=== PATIENT | female | born 2000 | race Caucasian/White ===

== ENCOUNTER 2021-11-10 12:57 | Emergency (ER) | payer OTHER, SELFPAY ==
--- NOTE | 2021-11-10 13:02 | ED.URI ---
HPI - URI/Sore Throat General Chief Complaint: Upper Respiratory Infection Stated Complaint: Sore throat Time Seen by Provider: 11/10/21 13:19 Source: patient and RN notes reviewed Mode of arrival: ambulatory Limitations: no limitations History of Present Illness HPI Narrative: 21-year-old female presents concern for sore throat. Reports symptoms started with the right clogged ear. Reports evolved into a sore throat. Reports trying to use several remedies at home to clean her ear out without success. She denies cough, body aches, chills, sweats. Reports general malaise. MD elicited complaint: cough and sore throat Related Data Allergies Allergy/AdvReac Type Severity Reaction Status Date / Time No Known Allergies Allergy Verified 11/10/21 13:17 Review of Systems Review of Systems: CONSTITUTIONAL: Reports malaise. Denies chills, sweats, or fever. EYES: Denies visual changes, redness, or discharge. ENT: Denies rhinorrhea, congestion, sinus pain, otalgia. Reports clogged right ear and sore throat. CARDIOVASCULAR: Denies chest pain, palpitations, or edema. RESPIRATORY: Denies cough. Denies dyspnea. GASTROINTESTINAL: Denies abdominal pain, nausea, vomiting, diarrhea SKIN: Denies rash or itching. MUSCULOSKELETAL: Denies myalgia. NEUROLOGIC: Denies headache. All systems reviewed & are unremarkable except as noted in HPI and below PMFSH Comments At time of signature, agree with nursing past medical, surgical, social and family history. There is no relevant family history pertinent to the presenting complaint Exam Narrative: GENERAL: Well-appearing, well-nourished, and in no acute distress. HEAD: Normocephalic EYES: PERRLA, conjunctivae clear ENT: Nares angieszka. Mucous membranes moist. Left TM pearly preciado with sharp light reflex, right TM not visible due to cerumen impaction; no tragal tenderness. Oropharynx erythematous without lesions. Tonsils enlarged with copious exudate, no drooling, no hoarseness, no trismus, uvula midline. NECK: Supple. No lymphadenopathy CHEST: Clear to auscultation, breath sounds equal. No wheezing, rhonchi, rales, or stridor. No respiratory distress, speaks in full sentences. HEART: Regular rate and rhythm. No murmur heard. SKIN: Warm, dry, no rash. NEURO: Alert and oriented x3. PSYCH: Normal mood and affect Course Course Emergency Course: Patient is aware of diagnosis, understands and agrees to treatment plan. Anticipatory guidance given. Patient agrees to follow-up as directed and is aware of reasons to seek care at the emergency department. Portions of this record may have been created with voice recognition software Vital Signs Vital signs: Vital Signs Temperature 99.9 F H 11/10/21 13:04 Pulse Rate 90 11/10/21 13:04 Respiratory Rate 16 11/10/21 13:04 Blood Pressure 109/95 H 11/10/21 13:04 Pulse Oximetry 100 11/10/21 13:04 Temperature 99.9 F H 11/10/21 13:04 Pulse Rate 90 11/10/21 13:04 Respiratory Rate 16 11/10/21 13:04 Blood Pressure 109/95 H 11/10/21 13:04 Pulse Oximetry 100 11/10/21 13:04 Reviewed. Procedures Ear Wax Removal Right Ear: Ear Wax Removal Date: 11/10/21 Ear Wax Removal Time: 14:27 Cerumenolytic Used: 5-10% Sodium Bicarb solution Results: Re-examined: cerumen removed completely TM Examination: TM(s) intact, normal appearance Ear Canal Exam: atraumatic Patient Tolerated Procedure: well Complications: no problems Technique: ear canal irrigated and ear canal curetted MDM - URI/Sore Throat MDM Narrative Medical decision making narrative: Differential diagnosis considered: Britton virus, strep pharyngitis, allergic rhinitis, upper respiratory tract infection, sinusitis, rhinosinusitis, nasopharyngitis. viral pharyngitis, otitis media, otitis externa, pneumonia, bronchitis, viral cough syndrome, viral syndrome, and influenza. Exam findings show no acute concerns or changes; patient is non-tox
[2021-11-10 13:04] VITALS: BP 109/95; PULSE 90; RESP 16; TEMP 37.7; O2SAT 100
== END 2021-11-10 13:45 | disposition home or self-care (01) ==
PROVIDERS: Emergency Provider Nurse Practitioner
DX: J02.0 Streptococcal pharyngitis (principal); H61.21 Impacted cerumen, right ear
CPT/HCPCS: 69210; 87880; 99213; G0463